=== PATIENT | female | born 1990 | race Caucasian/White ===

== ENCOUNTER 2019-02-26 13:39 | Emergency (ER) | payer OTHER ==
[~2019-02-26] VITALS: Ht 175.3 cm; Wt 93.0 kg
[2019-02-26 13:52] VITALS: BP 137/79
--- NOTE | 2019-02-26 13:57 | NUR ---
PT AMBULATED TO ER AT THIS TIME, VSS.
--- NOTE | 2019-02-26 15:12 | NUR ---
PT AMBULATED TO BED 08.
--- NOTE | 2019-02-26 15:18 | NUR ---
28 Y/O F, PRESENTED TO ED C/O RT UPPER LID WITH SWELLING AND ABSCESS, PT STATED THAT SHE WAS AT THE URGENT CARE TODAY AND WAS REFERRED TO GO TO ED. PT REPORTS FIRST NOTICING SMALL RED BUMP ON 02/22 AND IT HAS BEEN INCREASING SINCE. TODAY SHE ALSO HAS A SMALL RED BUMP AT THE OUTER CANTHUS OF THE RT EYE, C/O PAIN 9/10 THAT RADIATES TO THE UPPER RIGHT SIDE OF HER FACE. RT UPPER EYE LID WITH BUMP, REDNESS AND SWELLING, NO DRAINAGE/DISCHARGE NOTED AT THIS TIME. OBSERVED A SMALL BUMP AT THE OUTER RT CANTHUS OF THE EYE, YELLOWISH IN COLOR. AAOX4, GCS 15, RR EVEN UNLABORED, NO C/O BLURRY VISION, WILL CONTINUE TO MONITOR CLOSELY, ED MD DR. BARILLAS MADE AWARE, BED LOCKED IN LOWEST POSITION.
[2019-02-26] MEDS ORDERED: LIDOCAINE 1% 500 MG/50 ML VIAL INJ SCH (16:05)
--- NOTE | 2019-02-26 16:21 | NUR ---
I and D SETUP AT BEDSIDE.
[2019-02-26] MEDS ORDERED: LIDOCAINE MPF 1% - 5 mL VIAL 5 ML ONE (16:32)
[2019-02-26 17:05] VITALS: BP 133/70
--- NOTE | 2019-02-26 17:15 | NUR ---
Patient discharged with v/s stable. Written and verbal after care instructions given and explained. Patient alert, oriented and verbalized understanding of instructions. Ambulatory with steady gait. All questions addressed prior to discharge. ID band removed. Patient advised to follow up with PMD. Rx of MUPIROCIN2% TOPICAL OINTMENT given. Patient educated on indication of medication including possible reaction and side effects. Opportunity to ask questions provided and answered.
--- NOTE | 2019-02-26 17:27 | NUR ---
MEDS ADMINISTERED BY MD FOR THE PROCEDURE AT THE BEDSIDE. CHARTED LATE.
== END 2019-02-26 17:15 | disposition home or self-care (01) ==
LOC: MED 13:39
DX: H00.11 Chalazion right upper eyelid (principal); E11.9 Type 2 diabetes mellitus without complications
CPT/HCPCS: 67700; 99284; J2001; 99283